=== PATIENT | female | born 1945 | race Caucasian/White ===

== ENCOUNTER → 2016-09-24 | Outpatient (CLI) | payer MEDICARE, BC ==
[~2016-09-24] MED LIST: ALIMTA; ATIVAN 0.50.5 MG/TAB PO; B-121000 MCG PO; CALCIUM 600-D 61 TAB PO; FLEXERIL 1010 MG/TAB PO; FOLIC ACID 11 MG/TA1 PO; KEYTRUDA50 MG; LIPITOR20 MG PO; OMEGA 3-6-9 PO; THERA1 TAB PO; ZOFRAN 4MG T4 MG/TAB PO; [UNRECOGNIZED DRUG - OTHER]
== END ==
LOC: MC.RAD 08:07
DX: Z12.31 Encounter for screening mammogram for malignant neoplasm of breast (principal); N64.89 Other specified disorders of breast

== ENCOUNTER → 2016-10-06 | Outpatient (CLI) | payer MEDICARE, BC | LOC: MC.RAD 07:24 | DX: R92.2 Inconclusive mammogram (principal) ==

== ENCOUNTER 2016-11-09 08:51 | Inpatient (IN) | payer MEDICARE, BC ==
[~2016-11-09] VITALS: Ht 157.5 cm; Wt 70.4 kg
[2016-11-09] MEDS ORDERED: LIPITOR20 MG PO (09:28)
[2016-11-09] MEDS ORDERED: FLEXERIL 1010 MG/TAB PO (09:29)
[2016-11-09] MEDS ORDERED: ATIVAN 0.50.5 MG/TAB PO (09:39)
[2016-11-09] MEDS ORDERED: ZOFRAN 4MG T4 MG/TAB PO (09:39)
[2016-11-09 10:22] LABS: MEAN CELL VOLUME 88 fl (80.0-100.0); MEAN CORPUSCULAR HGB CONC 33 g/dl (33.0-37.0); MEAN PLATELET VOLUME 9.6 fl (7.4-10.4); PLATELET COUNT 423 K/mm3 (130-400); RED BLOOD COUNT 3.89 M/mm3 (4.10-5.30); REDCELL DISTRIBUTION WIDTH-CV 13.2 % (11.5-14.5); WHITE BLOOD COUNT 7.9 K/mm3 (4.8-10.8)
[2016-11-09 10:32] LABS: ALANINE AMINOTRANSFERASE 50 U/L (9-52); ALBUMIN 3.7 gm/dL (3.5-5.0); ALKALINE PHOSPHATASE 130 U/L (50-136); ANION GAP 13 mmol/L (7-16); BILIRUBIN,TOTAL 0.4 mg/dL (0.0-1.0); BLOOD UREA NITROGEN 14 mg/dL (7-17); CALCIUM 9.8 mg/dL (8.4-10.2); CARBON DIOXIDE 26 mmol/L (22-30); CHLORIDE 102 mmol/L (98-107); CREATININE, serum 0.66 mg/dL (0.52-1.25); GLUCOSE 113 mg/dL (74-106); LIPASE 76 U/L (23-300); POTASSIUM 4.2 mmol/L (3.4-5.0); SODIUM 141 mmol/L (137-145); TOTAL PROTEIN 7.4 gm/dL (6.4-8.2)
[2016-11-09 10:35] LABS: ADD PATHOLOGY DIFF REVIEW NO; HEMATOCRIT 34.2 % (37.0-47.0); HEMOGLOBIN 11.1 g/dl (12.5-16.0); MEAN CORPUSCULAR HEMOGLOBIN 29 pg (27.0-31.0)
[2016-11-09 10:43] LABS: B-TYPE NATRIURETIC PEPTIDE 214 pg/mL (0-125)
[2016-11-09 10:44] LABS: TROPONIN-I < 0.012 ng/mL (0.000-0.034)
[2016-11-09 10:45] LABS: INR 1.1 (0.8-3.0); PROTHROMBIN TIME 12.6 SECONDS (9.7-12.8)
[2016-11-09 10:47] LABS: PARTIAL THROMBOPLASTIN TIME 32.6 SECONDS (26.0-37.0)
[2016-11-09 11:07] LABS: BAND 19 % (0-10); BASOPHIL 1 % (0-2); EOSINOPHIL 2 % (0-4); NEUTROPHILS 65 % (42.0-75.2); TOTAL CELLS COUNTED 100
[2016-11-09 11:09] LABS: PLATELET ESTIMATE INCREASED (NORMAL)
[2016-11-09] MEDS ORDERED: THERA1 TAB PO (12:29)
[2016-11-09] MEDS ORDERED: OMEGA 3-6-9 PO (12:30)
[2016-11-09] MEDS ORDERED: CALCIUM 600-D 61 TAB PO (12:31)
[2016-11-09 12:40] VITALS: BP 164/65; PULSE 92; TEMP 98.2
[2016-11-09 15:16] VITALS: BP 144/53; PULSE 86; TEMP 99.2
[2016-11-09 19:36] VITALS: BP 152/63; PULSE 92; TEMP 98.8
[2016-11-09 23:03] VITALS: BP 128/63; PULSE 82; TEMP 97.7
[2016-11-10] VITALS (9 sets, daily range): BP systolic 129–149; BP diastolic 54–64; PULSE 70–97; TEMP 97.5–98.6
[2016-11-10 10:28] LABS: GLUCOSE,PLEURAL FLUID 91 mg/dL
[2016-11-10 10:32] LABS: PLEURAL FLUID - PMN 21.6 % (0-25)
[2016-11-10 13:01] LABS: PLEURAL FLUID LEFT SIDE; PLEURAL FLUID APPEARANCE CLOUDY; PLEURAL FLUID COLOR YELLOW
[2016-11-11] VITALS (8 sets, daily range): BP systolic 118–147; BP diastolic 55–66; PULSE 78–97; TEMP 97.4–99.3
[2016-11-11 08:12] LABS: BASO # 0.1 (0.0-0.2); BASO % 1.3 % (0.0-2.0); EOS # 0.3 (0.0-0.7); EOS % 4.2 % (0-4.0); GRAN % 76.9 % (42.2-75.2); LYMPH % 12.4 % (20.0-51.0); MEAN CELL VOLUME 88 fl (80.0-100.0); MEAN CORPUSCULAR HGB CONC 33 g/dl (33.0-37.0); MEAN PLATELET VOLUME 9.4 fl (7.4-10.4); MONO # 0.3 (0.1-0.6); MONO % 4.4 % (1.7-9.3); RED BLOOD COUNT 4.03 M/mm3 (4.10-5.30); REDCELL DISTRIBUTION WIDTH-CV 13.4 % (11.5-14.5); WHITE BLOOD COUNT 7.8 K/mm3 (4.8-10.8)
[2016-11-11 08:13] LABS: HEMATOCRIT 35.4 % (37.0-47.0); HEMOGLOBIN 11.6 g/dl (12.5-16.0); MEAN CORPUSCULAR HEMOGLOBIN 29 pg (27.0-31.0); PLATELET COUNT 526 K/mm3 (130-400)
[2016-11-11 08:26] LABS: CALCIUM 9.9 mg/dL (8.4-10.2); CREATININE, serum 0.68 mg/dL (0.52-1.25); POTASSIUM 3.6 mmol/L (3.4-5.0)
[2016-11-12 00:13] VITALS: BP 152/58; PULSE 86; TEMP 98.3
[2016-11-12 08:17] VITALS: BP 135/64; PULSE 87; TEMP 98.3
[2016-11-12 12:24] VITALS: BP 132/60; PULSE 93; TEMP 97
== END 2016-11-12 15:05 | disposition home or self-care (01) | DRG 181 ==
LOC: COL.ER 08:51 → MEDICAL 11:27
PROVIDERS: Emergency Medicine; Internal Medicine Pulmonary Disease; Nurse Practitioner Family
PROC: 0W9B3ZX Drainage of Left Pleural Cavity, Percutaneous Approach, Diagnostic (ICD-10-PCS; 2016-11-10)
PROC: 0BBG3ZX Excision of Left Upper Lung Lobe, Percutaneous Approach, Diagnostic (ICD-10-PCS; principal; 2016-11-11)
PROC: 0W9B3ZX Drainage of Left Pleural Cavity, Percutaneous Approach, Diagnostic (ICD-10-PCS; 2016-11-11)
DX: C34.12 Malignant neoplasm of upper lobe, left bronchus or lung (principal); J91.0 Malignant pleural effusion; I10 Essential (primary) hypertension
CPT/HCPCS: 99223-AI; 99233-AI; 99239; A9585; Q9967

== ENCOUNTER 2016-11-14 06:57 | Day surgery (SDC) | payer MEDICARE, BC ==
[~2016-11-14] VITALS: Ht 157.5 cm; Wt 67.8 kg
[~2016-11-14 06:57] MED LIST changes: -ALIMTA; -B-121000 MCG PO; -FOLIC ACID 11 MG/TA1 PO; -KEYTRUDA50 MG; -[UNRECOGNIZED DRUG - OTHER]
[2016-11-14 08:04] VITALS: BP 142/63; PULSE 100; TEMP 97.9
[2016-11-14 09:00] VITALS: BP 106/91; PULSE 76
[2016-11-14 09:01] VITALS: BP 120/65; PULSE 79
[2016-11-14 09:30] VITALS: BP 112/43; PULSE 75
== END 2016-11-14 09:52 | disposition home or self-care (01) ==
LOC: SDCO 06:57
DX: J91.0 Malignant pleural effusion (principal); C34.92 Malignant neoplasm of unspecified part of left bronchus or lung; I10 Essential (primary) hypertension; M54.5 Low back pain; R20.9 Unspecified disturbances of skin sensation; R09.1 Pleurisy; Z98.51 Tubal ligation status
CPT/HCPCS: C1729; J2250; J2704; J3010; J7120

== ENCOUNTER 2016-12-12 07:36 | Day surgery (SDC) | payer MEDICARE, BC ==
[~2016-12-12] VITALS: Ht 157.5 cm; Wt 65.4 kg
[2016-12-12 08:07] VITALS: BP 130/58; PULSE 77; TEMP 98.4
[2016-12-12] MEDS ORDERED: B-121000 MCG PO (08:14)
[2016-12-12] MEDS ORDERED: FOLIC ACID 11 MG/TA1 PO (08:14)
[2016-12-12] MEDS ORDERED: [UNRECOGNIZED DRUG - OTHER] (08:15)
[2016-12-12] MEDS ORDERED: ALIMTA (08:16)
[2016-12-12] MEDS ORDERED: KEYTRUDA50 MG (08:18)
[2016-12-12 10:14] VITALS: BP 112/49; PULSE 68; TEMP 98.5
[2016-12-12 10:21] VITALS: BP 103/49; PULSE 68
[2016-12-12 10:50] VITALS: BP 146/48; PULSE 67
== END 2016-12-12 11:23 | disposition home or self-care (01) ==
LOC: SDCO 07:36
DX: C34.92 Malignant neoplasm of unspecified part of left bronchus or lung (principal); I10 Essential (primary) hypertension; Z82.49 Family history of ischemic heart disease and other diseases of the circulatory system
CPT/HCPCS: C1788; J0690; J1644; J2250; J2405; J2704; J3010; J7120

== ENCOUNTER → 2017-01-21 | Outpatient (CLI) | payer MEDICARE, BC ==
[~2017-01-21] MED LIST changes: +ALIMTA; +B-121000 MCG PO; +FOLIC ACID 11 MG/TA1 PO; +KEYTRUDA50 MG; +[UNRECOGNIZED DRUG - OTHER]
== END ==
LOC: COL.RAD 09:37
DX: C34.12 Malignant neoplasm of upper lobe, left bronchus or lung (principal); R91.8 Other nonspecific abnormal finding of lung field
CPT/HCPCS: Q9967

== ENCOUNTER → 2017-02-04 | Outpatient (CLI) | payer MEDICARE, BC | LOC: COL.VAS 13:08 | DX: I82.812 Embolism and thrombosis of superficial veins of left lower extremity (principal); I82.492 Acute embolism and thrombosis of other specified deep vein of left lower extremity; Z80.1 Family history of malignant neoplasm of trachea, bronchus and lung ==

== ENCOUNTER → 2018-02-22 | Outpatient (CLI) | payer MEDICARE, BC ==
[~2018-02-22] MED LIST changes: +BENADRYL25 M2 PO; +COMPAZINE 110 MG/TAB PO; +DECADRON 4MG TAB4 MG PO; +DULCOLAX S10 MG/SUPP RC; +EFFER-K20 MEQ PO; +ELIQUIS 5MG PO; +K-DUR20 MEQ PO; +MEGACE ORAL40 MG/ML PO; +MULTI VITAMINS1 TAB PO; +PRILOSEC 20MG20 MG PO; +PROMETHAZINE12.5 M5 PO; +VITAMIN B12 781 TAB PO
== END ==
LOC: MC.RAD 10:28
DX: Z12.31 Encounter for screening mammogram for malignant neoplasm of breast (principal)

== ENCOUNTER 2018-06-10 10:00 | Emergency (ER) | payer MEDICARE, BC ==
[~2018-06-10] VITALS: Ht 157.5 cm; Wt 65.9 kg
[2018-06-10 11:00] VITALS: TEMP 98.9
[2018-06-10 14:16] VITALS: BP 125/88; PULSE 95
[2018-06-12 17:31] LABS: BILIRUBIN,TOTAL 0.2 mg/dL (0.0-1.0); C-REACTIVE PROTEIN 6.6 mg/dL (0.0-0.9); CREATININE, serum 0.77 mg/dL (0.52-1.25); POTASSIUM 3.3 mmol/L (3.4-5.0); TOTAL PROTEIN 6.2 gm/dL (6.4-8.2)
[2018-06-12 17:33] LABS: BASO # 0.1 (0.0-0.2); BASO % 1.1 % (0.0-2.0); EOS # 2.2 (0.0-0.7); EOS % 26.3 % (0-4.0); GRAN # 5.4 (1.4-6.5); GRAN % 63.3 % (42.2-75.2); HEMATOCRIT 28.2 % (37.0-47.0); HEMOGLOBIN 8.9 g/dl (12.5-16.0); LYMPH # 0.4 (1.2-3.4); LYMPH % 4.1 % (20.0-51.0); MEAN CELL VOLUME 86 fl (80.0-100.0); MEAN CORPUSCULAR HEMOGLOBIN 27 pg (27.0-31.0); MEAN CORPUSCULAR HGB CONC 32 g/dl (33.0-37.0); MEAN PLATELET VOLUME 9.7 fl (7.4-10.4); MONO # 0.4 (0.1-0.6); MONO % 4.7 % (1.7-9.3); PLATELET COUNT 346 K/mm3 (130-400); RED BLOOD COUNT 3.28 M/mm3 (4.10-5.30); REDCELL DISTRIBUTION WIDTH-CV 14.7 % (11.5-14.5)
== END 2018-06-10 14:18 | disposition home or self-care (01) ==
LOC: COL.ER 10:00
PROVIDERS: Family Medicine
DX: C34.90 Malignant neoplasm of unspecified part of unspecified bronchus or lung (principal)
CPT/HCPCS: J7040